=== PATIENT | male | born 1960 | race Caucasian/White ===

== ENCOUNTER 2020-11-17 08:20 | Emergency (ER) | payer BC, SELFPAY ==
--- NOTE | ~2020-11-17 | XR_ITS ---
EXAMINATION: XR CHEST CLINICAL INFORMATION: Chest pain COMPARISON: None TECHNIQUE: 2 views of the chest were obtained. FINDINGS: No significant abnormality is noted involving the heart, lungs, mediastinum, bony thorax or soft tissues. XR/XR chest 2V IMPRESSION: Unremarkable examination.
--- NOTE | 2020-11-17 08:25 | ECG_ITS ---
Test Reason : CP Blood Pressure : / mmHG Vent. Rate : 071 BPM Atrial Rate : 071 BPM P-R Int : 144 ms QRS Dur : 096 ms QT Int : 388 ms P-R-T Axes : 076 008 038 degrees QTc Int : 421 ms Normal sinus rhythm Possible Left atrial enlargement Incomplete right bundle branch block Borderline ECG No previous ECGs available Referred By: Zita Hoffman Electronically Signed By:LIU FORD
[2020-11-17 08:32] VITALS: BP 142/91; PULSE 82; RESP 16; TEMP 37.1; O2SAT 98; BMI 25.0
--- NOTE | 2020-11-17 08:53 | ED.CHESTPAIN ---
HPI - Chest Pain General Chief Complaint: Chest Pain Stated Complaint: chest pain Time Seen by Provider: 11/17/20 08:22 Source: patient Mode of arrival: ambulatory Limitations: no limitations History of Present Illness HPI narrative: 60 yo male with past medical history of RBBB and HLD here with complaints of epigastric/substernal chest pain x 1 hr which occurred at rest and is not associated with nausea, vomiting, diarrhea, SOB, dizziness, diaphoresis. He tells me he has had several similar episodes in the past which he contributed to indigestion. Took tums this morning with continued symptoms. He tells me this morning he had some cheerrios with milk approximately 30 minutes prior to episodes. MD complaint: chest pain Related Data Allergies Allergy/AdvReac Type Severity Reaction Status Date / Time No Known Allergies Allergy Unverified 06/05/20 16:27 [No Known Allergies*] Review of Systems Review of Systems: Yes all other systems are reviewed and are negative Constitutional: Constitutional: Reports no additional constitutional complaints, Denies body ache(s), Denies chills, Denies fever(s), Denies headache(s) and Denies weakness Eyes: Eyes: Reports no additional eye complaints and Denies change in vision ENT: Reports system reviewed and no additional complaints, except as documented, Denies dizziness, Denies headache(s), Denies nasal congestion, Denies nasal discharge and Denies neck pain Cardiovascular: Cardiovascular: Reports no additional cardiovascular complaints, Reports chest pain, Denies leg edema and Denies dyspnea Respiratory: Respiratory: Reports no additional respiratory complaints, Denies cough and Denies dyspnea Gastrointestinal: Gastrointestinal: Reports no additional gastrointestinal complaints, Denies abdominal pain, Denies diarrhea, Denies nausea and Denies vomiting Genitourinary: Genitourinary: Denies urinary incontinence Musculoskeletal: Musculoskeletal: Reports no additional musculoskeletal complaints, Denies back pain, Denies arthralgias, Denies joint swelling, Denies neck pain, Denies numbness and Denies tingling Integumentary/Breasts: Skin/Breast: Reports system reviewed and no additional complaints, except as docu and Denies rash Neurologic: Reports system reviewed and no additional complaints, except as documented, Denies Abnormal speech present, Denies dizziness, Denies headache(s), Denies numbness, Denies tingling and Denies weakness [facility] Past Medical History Attestation statement: The following information was validated with the patient. Source: old records reviewed and nursing notes reviewed Medical History Hyperlipidemia Social History Social History Alcohol intake: current Alcohol intake frequency: a few times a week Smoking Status: Never smoker Use of substances other than those prescribed or required for medical reasons: No Advance Directives: Yes Advance Directives Information Provided: Yes Advance Directives on File: No Physical Exam Vital Signs: Vital Signs: Last Vital Signs Temp 98.8 F 11/17/20 08:32 Pulse 82 11/17/20 08:32 Resp 16 11/17/20 08:32 BP 142/91 H 11/17/20 08:32 Pulse Ox 98 11/17/20 08:32 Body Mass Index 25.0 Const: General: cooperative, healthy appearing, comfortable and no acute distress Orientation/consciousness: patient oriented x3 Limitations: no limitations HENMT: Head: Yes normal to inspection Ears: hearing grossly normal bilaterally General nose exam: Normal external nose present Face and sinus: Yes normal facial exam Mouth: Normal oral and palatal mucosa present Throat: Yes posterior oropharynx normal Eyes: General: appearance normal, both eyes and all related structures Pupils: Equal, round and reactive pupils present Neck: Neck: Yes normal visual inspection Chest: Chest palpation & inspection: normal inspection of the chest and tenderness (tenderness over lower sternum-mild) Resp: Effort & Inspection: normal respiratory effort Auscultation: clear to auscultation bilaterally Cardio: Rate: regular rate Rhythm: regular rhythm Peripheral pulses: Peripheral pulses 2+ throughout GI: Inspection: Yes normal to inspection Palpation (GI): Soft to palpation and nontender Auscultation: normal bowel sounds Back/Spine/Pelvis: Thoracic/Lumbar Spine: thoracic and lumbar spine normal to inspection Skin: General skin exam: no rashes or lesions noted Neuro: General: patient oriented x3, no focal motor deficits and normal sensation to monofilament Cranial nerves: Yes Equal, round and reactive pupils present Cognition (Neuro): normal cognition Speech: No Abnormal speech present Gait exam (Neuro): Normal gait present Motor exam (neuro): 5/5 motor strength present throughout Extrem: General: Yes normal to inspection Course Course Course Narrative: 60 yo male here with epigastric pain/substernal chest pain x 1 hr with no associated symptoms. Will need labs, CXR, EKG, GI cocktail. 0930-Pain resolved after GI cocktail. 1020-Initial troponin negative, plan for repeat 3 hr. 1245-troponin 2. Negative. Less likely ACS with troponin x2 negative, EKG which shows no ischemic changes and atypical chest pain. Less likely PE with perc score 0, no tachycardia or hypoxia or clinical signs or symptoms concerning for DVT. Less likely pneumonia with negative chest x-ray. Consider GERD. Discussed with patient we will trial 2 week course of a PPI. Could also consider esophageal spasm so recommended him following up with his primary care doctor to discuss this. Reviewed worrisome signs and symptoms of when to return to the emergency department. Comfortable discharge home. MDM - Chest Pain MDM Narrative Medical decision making narrative: ACS, PE, PNA, GERD vs gastritis Medical Records Data Attestation: I reviewed the patient's medical records. Lab Data Attestation: I reviewed the patient's lab results. Result diagrams: 11/17/20 08:52 11/17/20 08:52 Labs: Lab Results 11/17/20 11/17/20 11/17/20 Range/Units 08:52 08:52 08:52 WBC 5.3 (4.8-10.8) X10*3/uL RBC 4.47 L (4.60-5.80) X10*6/uL Hgb 14.4 (14.0-18.0) g/dl Hct 42.7 (42-52) % MCV 95.5 (80-98) fL MCH 32.2 (27.0-33.0) pg MCHC 33.7 (31.0-36.0) g/dl RDW 12.8 (11.0-16.0) % Plt Count 266 (160-400) X10*3/uL MPV 9.0 L (9.4-12.4) fL Immature Gran % (Auto) 0.4 (0.0-0.4) % Neut % (Auto) 65.6 (45-73) % Lymph % (Auto) 23.2 (20-40) % [place] % (Auto) 7.4 (2-11) % Eos % (Auto) 2.8 (0-4) % Baso % (Auto) 0.6 (0-2) % Lymph # (Auto) 1.2 (1.2-4.9) X10*3/uL [place] # (Auto) 0.4 (0.1-1.2) X10*3/uL Eos # (Auto) 0.2 (0.0-0.4) X10*3/uL Baso # (Auto) 0.0 (0.0-0.2) X10*3/uL Abs Immat Gran (auto) 0.02 (0.00-0.03) X10*3/uL Absolute Neuts (auto) 3.5 (2.0-8.3) X10*3/uL Absolute Nucleated RBC 0.000 (0.0-0.012) X10*3/uL Nucleated RBC % (auto) 0.0 (0.0-0.2) /100WBC PT 11.9 (10.8-13.0) SEC INR 1.0 (0.9-1.1) Sodium 142 (135-145) mmol/L Potassium 4.4 (3.3-5.1) mmol/L Chloride 107 (96-108) mmol/L Carbon Dioxide 25 (22-29) mmol/L Anion Gap 14 (12-20) BUN 17 H (9-16) mg/dL Creatinine 0.82 (0.5-1.4) mg/dL Estim Creat Clear Calc 88.4 Estimated GFR > 60 Random Glucose 93 (60-115) mg/dL Calcium 9.2 (8.4-10.2) mg/dL Total Bilirubin 2.0 H (0.0-1.0) mg/dL Direct Bilirubin 0.6 H (0.0-0.5) mg/dL AST 23 (5-37) U/L ALT 21 (0-40) U/L Alkaline Phosphatase 77 (39-117) U/L Troponin I High Sens (<3.5-35.0) ng/L Total Protein 7.2 (6.5-8.0) g/dL Albumin 4.4 (3.5-5.0) g/dL 11/17/20 11/17/20 Range/Units 08:52 11:40 WBC (4.8-10.8) X10*3/uL RBC (4.60-5.80) X10*6/uL Hgb (14.0-18.0) g/dl Hct (42-52) % MCV (80-98) fL MCH (27.0-33.0) pg MCHC (31.0-36.0) g/dl RDW (11.0-16.0) % Plt Count (160-400) X10*3/uL MPV (9.4-12.4) fL Immature Gran % (Auto) (0.0-0.4) % Neut % (Auto) (45-73) % Lymph % (Auto) (20-40) % [place] % (Auto) (2-11) % Eos % (Auto) (0-4) % Baso % (Auto) (0-2) % Lymph # (Auto) (1.2-4.9) X10*3/uL [place] # (Auto) (0.1-1.2) X10*3/uL Eos # (Auto) (0.0-0.4) X10*3/uL Baso # (Auto) (0.0-0.2) X10*3/uL Abs Immat Gran (auto) (0.00-0.03) X10*3/uL Absolute Neuts (auto) (2.0-8.3) X10*3/uL Absolute Nucleated RBC (0.0-0.012) X10*3/uL Nucleated RBC % (auto) (0.0-0.2) /100WBC PT (10.8-13.0) SEC INR (0.9-1.1) Sodium (135-145) mmol/L Potassium (3.3-5.1) mmol/L Chloride (96-108) mmol/L Carbon Dioxide (22-29) mmol/L Anion Gap (12-20) BUN (9-16) mg/dL Creatinine (0.5-1.4) mg/dL Estim Creat Clear Calc Estimated GFR Random Glucose (60-115) mg/dL Calcium (8.4-10.2) mg/dL Total Bilirubin (0.0-1.0) mg/dL Direct Bilirubin (0.0-0.5) mg/dL AST (5-37) U/L ALT (0-40) U/L Alkaline Phosphatase (39-117) U/L Troponin I High Sens < 3.5 < 3.5 (<3.5-35.0) ng/L Total Protein (6.5-8.0) g/dL Albumin (3.5-5.0) g/dL Imaging Data Chest x-ray: Attestation: I personally reviewed and interpreted this imaging study as follows: Radiologist's impression: EXAMINATION: XR CHEST CLINICAL INFORMATION: Chest pain COMPARISON: None TECHNIQUE: 2 views of the chest were obtained. FINDINGS: No significant abnormality is noted involving the heart, lungs, mediastinum, bony thorax or soft tissues. XR/XR chest 2V IMPRESSION: Unremarkable examination. ECG Data ECG #1: Attestation: I personally reviewed and interpreted this ECG as follows: Interpretation: NSR, rate 71, normal pr, normal qrs, normal qt, incomplete RBBB Discharge Plan Discharge Clinical Impression: Atypical chest pain Patient Disposition: Home, Self-Care Instructions: Chest Pain (ED) Additional Instructions: Your EKG and cardiac enzymes and chest x-ray were all unremarkable today. We did check her cardiac enzymes twice and your level did not change which is reassuring that this was not a cardiac event. We do recommend that you follow-up with your primary care doctor as you may need additional testing done outpatient. In the meantime I would follow a GERD diet and start taking prilosec 20mg once daily for 14 days. You can buy this over the counter Referrals: Zeeshan Mccauley MD [Primary Care Provider] - 2 days
[2020-11-17] MEDS: Magnesium Hydrox/Alum Hydrox 30 ML ORAL.SUSP PO (08:55)
[2020-11-17] MEDS: Lidocaine HCl Viscous 2 % 15 ML SOLUTION MUCOUS MEM (08:55)
[2020-11-17 09:31] LABS: Basophils Percent Auto 0.6 % (0-2); Eosinophils Absolute Auto 0.2 X10*3/uL (0.0-0.4); Eosinophils Percent Auto 2.8 % (0-4); Hematocrit 42.7 % (42-52); Hemoglobin 14.4 g/dl (14.0-18.0); Imm Gran Abs Auto 0.02 X10*3/uL (0.00-0.03); Imm Gran Pct Auto 0.4 % (0.0-0.4); Lymphocytes Absolute Auto 1.2 X10*3/uL (1.2-4.9); Lymphocytes Percent Auto 23.2 % (20-40); MANUAL DIFF FLAG NO; Mean Corpuscular HGB Conc 33.7 g/dl (31.0-36.0); Mean Corpuscular Hemoglobin 32.2 pg (27.0-33.0); Mean Corpuscular Volume 95.5 fL (80-98); Monocytes Absolute Auto 0.4 X10*3/uL (0.1-1.2); Monocytes Percent Auto 7.4 % (2-11); Neutrophils Absolute Auto 3.5 X10*3/uL (2.0-8.3); Neutrophils Percent Auto 65.6 % (45-73); Platelet Count 266 X10*3/uL (160-400); Red Blood Count 4.47 X10*6/uL (4.60-5.80); Red Cell Distribution Width 12.8 % (11.0-16.0); White Blood Count 5.3 X10*3/uL (4.8-10.8)
--- NOTE | 2020-11-17 09:32 | PC.NURSE ---
Pt pain free. OOB to bathroom
[2020-11-17 09:33] LABS: Prothrombin Time 11.9 SEC (10.8-13.0)
[2020-11-17 10:04] LABS: Troponin-I High Sensitivity < 3.5 ng/L (<3.5-35.0)
[2020-11-17 10:12] LABS: Alanine Aminotransferase 21 U/L (0-40); Albumin Level 4.4 g/dL (3.5-5.0); Alkaline Phosphatase 77 U/L (39-117); Anion Gap 14 (12-20); Aspartate Amino Transferase 23 U/L (5-37); Bilirubin Direct 0.6 mg/dL (0.0-0.5); Blood Urea Nitrogen 17 mg/dL (9-16); Calcium 9.2 mg/dL (8.4-10.2); Carbon Dioxide 25 mmol/L (22-29); Chloride 107 mmol/L (96-108); Creatinine Clr Calc Pharmacy 88.4; Estimated Glomerular Filt Rate > 60; Glucose Random 93 mg/dL (60-115); Potassium 4.4 mmol/L (3.3-5.1); Sodium 142 mmol/L (135-145); Total Protein 7.2 g/dL (6.5-8.0)
[2020-11-17 12:22] LABS: Troponin-I High Sensitivity < 3.5 ng/L (<3.5-35.0)
== END 2020-11-17 13:00 | disposition home or self-care (01) ==
PROVIDERS: Nurse Practitioner Family; Emergency Provider Emergency Medicine; PCP Internal Medicine
DX: R07.89 Other chest pain (principal); E78.5 Hyperlipidemia, unspecified
CPT/HCPCS: 36415; 71046; 80048; 80076; 84484; 85025; 85610; 93005; 99283; 99284

== ENCOUNTER → 2020-11-21 08:23 | Outpatient (REF) | payer BC, SELFPAY ==
--- NOTE | 2020-11-21 08:30 | CA_ITS ---
Acquisition Time: 2020-11-21 08:36:16 Total Exercise Time: 00:09:00 Test Indications: NA Medications: SEE CHART Protocol: JAVED Max HR: 150 BPM 94% of Pred: 159 BPM Max BP: 154/082 mmHG Max Work Load: 10.1 METS PT EXERCISED ON STD JAVED PROTOCOL FOR 9 MIN THRU STAGE 3. MAX HR 148-93% . NO CP OR SOB. ONE ISOLATED PVC AND ONE PAC. NO SXS. CLINICALLY AND ELEC NEG TEST. B/P @ 6 MIN 140/80 B/P @ 9 MIN 154/82 Referred By: Zeeshan Floyd Overread By: RANDALL FLOYD MD
== END ==
LOC: HO.CARD 08:23
PROVIDERS: Visit Provider Internal Medicine
DX: R07.89 Other chest pain (principal)
CPT/HCPCS: 93017

== ENCOUNTER 2021-01-30 10:04 | Outpatient (REF) | payer BC, SELFPAY ==
[2021-01-30 13:58] LABS: MANUAL DIFF FLAG NO
[2021-01-30 14:03] LABS: Basophils Percent Auto 0.6 % (0-2); Eosinophils Absolute Auto 0.1 X10*3/uL (0.0-0.4); Eosinophils Percent Auto 2.1 % (0-4); Hematocrit 43.4 % (42-52); Hemoglobin 14.3 g/dl (14.0-18.0); Imm Gran Abs Auto 0.01 X10*3/uL (0.00-0.03); Imm Gran Pct Auto 0.2 % (0.0-0.4); Lymphocytes Absolute Auto 1.3 X10*3/uL (1.2-4.9); Lymphocytes Percent Auto 28.6 % (20-40); Mean Corpuscular HGB Conc 32.9 g/dl (31.0-36.0); Mean Corpuscular Hemoglobin 32.1 pg (27.0-33.0); Mean Corpuscular Volume 97.5 fL (80-98); Mean Platelet Volume 9.2 fL (9.4-12.4); Monocytes Absolute Auto 0.4 X10*3/uL (0.1-1.2); Monocytes Percent Auto 8.1 % (2-11); Neutrophils Absolute Auto 2.8 X10*3/uL (2.0-8.3); Neutrophils Percent Auto 60.4 % (45-73); Platelet Count 268 X10*3/uL (160-400); Red Blood Count 4.45 X10*6/uL (4.60-5.80); Red Cell Distribution Width 12.5 % (11.0-16.0); White Blood Count 4.7 X10*3/uL (4.8-10.8)
[2021-01-30 14:29] LABS: Alanine Aminotransferase 20 U/L (0-40); Albumin Level 4.4 g/dL (3.5-5.0); Alkaline Phosphatase 83 U/L (39-117); Anion Gap 14 (12-20); Aspartate Amino Transferase 20 U/L (5-37); Bilirubin Total 2.1 mg/dL (0.0-1.0); Blood Urea Nitrogen 14 mg/dL (9-16); Calcium 9.3 mg/dL (8.4-10.2); Carbon Dioxide 25 mmol/L (22-29); Chloride 106 mmol/L (96-108); Cholesterol 187 mg/dL; Estimated Glomerular Filt Rate > 60; Glucose Fasting 83 mg/dL (60-99); HDL Cholesterol 57 mg/dL; LDL Cholesterol Calculated 110 mg/dl; Potassium 4.2 mmol/L (3.3-5.1); Sodium 141 mmol/L (135-145); Total Protein 7.1 g/dL (6.5-8.0); Triglycerides 103 mg/dL
[2021-01-30 14:52] LABS: Prostate Specific Antigen Scr 1.25 ng/mL (<0.05-4.0)
== END 2021-01-30 10:05 | disposition home or self-care (01) ==
LOC: HO.10HDL 10:04
PROVIDERS: Visit Provider Internal Medicine
DX: Z00.00 Encounter for general adult medical examination without abnormal findings (principal); Z12.5 Encounter for screening for malignant neoplasm of prostate
CPT/HCPCS: 36415; 80053; 80061; 84153; 85025

== ENCOUNTER 2022-01-29 09:42 | Outpatient (REF) | payer BC, SELFPAY ==
[2022-01-29 10:02] LABS: MANUAL DIFF FLAG NO
[2022-01-29 10:15] LABS: Basophils Percent Auto 0.4 % (0-2); Eosinophils Absolute Auto 0.1 X10*3/uL (0.0-0.4); Eosinophils Percent Auto 1.5 % (0-4); Hematocrit 42.5 % (42.0-52.0); Lymphocytes Absolute Auto 1.5 X10*3/uL (1.2-4.9); Lymphocytes Percent Auto 28.2 % (20-40); Mean Corpuscular HGB Conc 32.9 g/dl (31.0-36.0); Mean Corpuscular Hemoglobin 31.3 pg (27.0-33.0); Mean Corpuscular Volume 94.9 fL (80.0-98.0); Mean Platelet Volume 8.6 fL (9.4-12.4); Monocytes Absolute Auto 0.4 X10*3/uL (0.1-1.2); Monocytes Percent Auto 7.6 % (2-11); Neutrophils Absolute Auto 3.3 x10*3/uL (2.0-8.3); Neutrophils Percent Auto 62.3 % (45-73); Platelet Count 241 X10*3/uL (160-400); Red Blood Count 4.48 X10*6/uL (4.60-5.80); Red Cell Distribution Width 12.7 % (11.0-16.0); White Blood Count 5.3 X10*3/uL (4.8-10.8)
[2022-01-29 10:46] LABS: Alanine Aminotransferase 21 U/L (0-40); Albumin Level 4.5 g/dL (3.5-5.0); Alkaline Phosphatase 80 U/L (39-117); Anion Gap 13 (12-20); Aspartate Amino Transferase 20 U/L (5-37); Bilirubin Total 1.6 mg/dL (0.0-1.0); Blood Urea Nitrogen 16 mg/dL (9-16); Calcium 9.7 mg/dL (8.4-10.2); Carbon Dioxide 24 mmol/L (22-29); Chloride 106 mmol/L (96-108); Cholesterol 189 mg/dL; Estimated Glomerular Filt Rate > 60; Glucose Fasting 97 mg/dL (60-99); HDL Cholesterol 61 mg/dL; LDL Cholesterol Calculated 106 mg/dl; Potassium 4.2 mmol/L (3.3-5.1); Sodium 139 mmol/L (135-145); Total Protein 7.2 g/dL (6.5-8.0); Triglycerides 114 mg/dL
[2022-01-29 11:08] LABS: Prostate Specific Antigen 1.71 ng/mL (<0.05-4.0)
== END 2022-01-29 09:43 | disposition home or self-care (01) ==
LOC: HO.LAB 09:42
PROVIDERS: PCP Internal Medicine; Visit Provider Internal Medicine
DX: Z00.00 Encounter for general adult medical examination without abnormal findings (principal); Z13.220 Encounter for screening for lipoid disorders; Z12.5 Encounter for screening for malignant neoplasm of prostate
CPT/HCPCS: 36415; 80053; 80061; 84153; 85025

== ENCOUNTER 2023-02-04 11:03 | Outpatient (REF) | payer BC, SELFPAY ==
[2023-02-04 13:24] LABS: MANUAL DIFF FLAG NO
[2023-02-04 13:33] LABS: Basophils Percent Auto 0.7 % (0-2); Eosinophils Absolute Auto 0.1 X10*3/uL (0.0-0.4); Hematocrit 42.7 % (42.0-52.0); Hemoglobin 14.3 g/dl (14.0-18.0); Imm Gran Abs Auto 0.02 X10*3/uL (0.00-0.03); Imm Gran Pct Auto 0.4 % (0.0-0.4); Lymphocytes Absolute Auto 1.6 X10*3/uL (1.2-4.9); Lymphocytes Percent Auto 29.5 % (20-40); Mean Corpuscular HGB Conc 33.5 g/dl (31.0-36.0); Mean Corpuscular Hemoglobin 31.8 pg (27.0-33.0); Mean Corpuscular Volume 94.9 fL (80.0-98.0); Mean Platelet Volume 9.1 fL (9.4-12.4); Monocytes Absolute Auto 0.4 X10*3/uL (0.1-1.2); Monocytes Percent Auto 7.7 % (2-11); Neutrophils Absolute Auto 3.2 x10*3/uL (2.0-8.3); Neutrophils Percent Auto 59.7 % (45-73); Platelet Count 280 X10*3/uL (160-400); Red Cell Distribution Width 13.2 % (11.0-16.0); White Blood Count 5.4 X10*3/uL (4.8-10.8)
[2023-02-04 13:56] LABS: Alanine Aminotransferase 26 U/L (0-40); Albumin Level 4.4 g/dL (3.5-5.0); Alkaline Phosphatase 82 U/L (39-117); Anion Gap 14 (12-20); Aspartate Amino Transferase 25 U/L (5-37); Bilirubin Total 2.2 mg/dL (0.0-1.0); Blood Urea Nitrogen 16 mg/dL (9-16); Calcium 9.4 mg/dL (8.4-10.2); Carbon Dioxide 25 mmol/L (22-29); Chloride 107 mmol/L (96-108); Cholesterol 202 mg/dL; Estimated Glomerular Filt Rate > 60; Glucose Fasting 84 mg/dL (60-99); HDL Cholesterol 53 mg/dL; LDL Cholesterol Calculated 124 mg/dl; Potassium 4.3 mmol/L (3.3-5.1); Sodium 142 mmol/L (135-145); Total Protein 7.2 g/dL (6.5-8.0); Triglycerides 125 mg/dL
[2023-02-04 14:13] LABS: Prostate Specific Antigen 2.16 ng/mL (<0.05-4.0)
== END 2023-02-04 11:04 | disposition home or self-care (01) ==
LOC: HO.10HDL 11:03
PROVIDERS: Visit Provider Internal Medicine
DX: E55.9 Vitamin D deficiency, unspecified (principal); N40.0 Benign prostatic hyperplasia without lower urinary tract symptoms; E78.00 Pure hypercholesterolemia, unspecified; Z12.5 Encounter for screening for malignant neoplasm of prostate
CPT/HCPCS: 36415; 80053; 80061; 82306; 84153; 85025

== ENCOUNTER 2023-10-31 15:43 | Outpatient (REF) | payer BC, SELFPAY ==
--- NOTE | ~2023-10-31 | XR_ITS ---
EXAMINATION: XR CHEST CLINICAL INFORMATION: Cough COMPARISON: 11/17/2020 TECHNIQUE: 2 views of the chest were obtained. FINDINGS: Lungs are well-inflated and clear. Trachea is midline in position. No interstitial disease, consolidation or mass. No pleural effusion or pneumothorax. Cardiac silhouette and pulmonary vessels are normal in size. The mediastinum and aidan have normal contour. The visualized bones and upper abdomen are unremarkable. XR/XR chest 2V IMPRESSION: Lungs have a normal appearance. No acute cardiopulmonary abnormality.
[2023-10-31 16:54] LABS: Influenza A PCR NEGATIVE (Negative); Influenza B PCR NEGATIVE (Negative); Resp Syncy Virus RNA Qual PCR NEGATIVE (Negative); SARS COV2 PCR INHOUSE NEGATIVE (Negative)
== END 2023-10-31 15:44 | disposition home or self-care (01) ==
LOC: HO.XRAY 15:43
PROVIDERS: PCP Internal Medicine; Visit Provider Internal Medicine
DX: Z11.52 Encounter for screening for COVID-19 (principal); Z20.822 Contact with and (suspected) exposure to COVID-19; R05.9 Cough, unspecified
CPT/HCPCS: 0241U; 71046

== ENCOUNTER 2024-02-10 09:31 | Outpatient (REF) | payer BC, SELFPAY ==
[2024-02-10 10:22] LABS: MANUAL DIFF FLAG NO
[2024-02-10 10:33] LABS: Basophils Percent Auto 0.6 % (0-2); Eosinophils Absolute Auto 0.1 X10*3/uL (0.0-0.4); Eosinophils Percent Auto 1.5 % (0-4); Hematocrit 43.7 % (42.0-52.0); Hemoglobin 14.8 g/dl (14.0-18.0); Imm Gran Abs Auto 0.01 X10*3/uL (0.00-0.03); Imm Gran Pct Auto 0.2 % (0.0-0.4); Lymphocytes Absolute Auto 1.3 X10*3/uL (1.2-4.9); Lymphocytes Percent Auto 28.7 % (20-40); Mean Corpuscular HGB Conc 33.9 g/dl (31.0-36.0); Mean Corpuscular Hemoglobin 32.6 pg (27.0-33.0); Mean Corpuscular Volume 96.3 fL (80.0-98.0); Mean Platelet Volume 8.7 fL (9.4-12.4); Monocytes Absolute Auto 0.4 X10*3/uL (0.1-1.2); Monocytes Percent Auto 7.5 % (2-11); Neutrophils Absolute Auto 2.9 x10*3/uL (2.0-8.3); Neutrophils Percent Auto 61.5 % (45-73); Platelet Count 286 X10*3/uL (160-400); Red Blood Count 4.54 X10*6/uL (4.60-5.80); Red Cell Distribution Width 12.5 % (11.0-16.0); White Blood Count 4.7 X10*3/uL (4.8-10.8)
[2024-02-10 10:48] LABS: Alanine Aminotransferase 20 U/L (0-40); Albumin Level 4.4 g/dL (3.5-5.0); Alkaline Phosphatase 84 U/L (39-117); Anion Gap 13 (12-20); Aspartate Amino Transferase 21 U/L (5-37); Bilirubin Total 1.8 mg/dL (0.0-1.0); Blood Urea Nitrogen 14 mg/dL (9-16); Calcium 10.2 mg/dL (8.4-10.2); Carbon Dioxide 26 mmol/L (22-29); Chloride 106 mmol/L (96-108); Cholesterol 178 mg/dL (<200); Estimated Glomerular Filt Rate > 60; Glucose Fasting 89 mg/dL (60-99); HDL Cholesterol 55 mg/dL (>40); LDL Cholesterol Calculated 103 mg/dL (<100); Potassium 4.2 mmol/L (3.3-5.1); Sodium 141 mmol/L (135-145); Total Protein 7.4 g/dL (6.5-8.0); Triglycerides 102 mg/dL (<150)
[2024-02-10 11:18] LABS: Prostate Specific Antigen Scr 3.03 ng/mL (<0.05-4.0)
== END 2024-02-10 09:32 | disposition home or self-care (01) ==
LOC: HO.10HDL 09:31
PROVIDERS: Visit Provider Internal Medicine
DX: Z12.5 Encounter for screening for malignant neoplasm of prostate (principal); E78.00 Pure hypercholesterolemia, unspecified; N40.0 Benign prostatic hyperplasia without lower urinary tract symptoms; Z86.010 Personal history of colon polyps
CPT/HCPCS: 36415; 80053; 80061; 84153; 85025

== ENCOUNTER 2024-09-10 08:05 | Outpatient (AMB) | payer MEDICARE, SELFPAY ==
--- NOTE | 2024-09-10 08:20 | MHC.OFFVIS ---
Vital Signs 09/10/24 08:22 Height 5 ft 7 in Weight 160 lb BMI 25.1 Intake Visit Reasons: Right knee pain and giving way Intake Note: Mo is a 63 year old male who presents with complaints of progressively worsening right knee pain and giving way. The patient describes his pain as sharp in nature. His pain and mechanical symptoms have gotten worse over the last few months in spite of continued non operative treatments. The patient states that he normally walks or hikes for exercise. He has not been able to walk for exercise because of his pain. Most of the pain is along the medial and posterior aspects of his knee. He has tried Tylenol and ibuprofen which gave him minimal relief. He has failed the last 6 weeks of conservative treatment. He has tried physical therapy exercises which aggravated his pain. The patient states that his right knee pain is now interfering with his activities of daily living and his ability to sleep well through the night. Allergies No Known Allergies [No Known Allergies*] Allergy (Unverified 09/10/24 08:22) Medication List - Last Reconciled 09/10/24 by Jordan Blanco MD latanoprost 0.005% drps ophthalmic (eye) simvastatin 20 mg PO BEDTIME [facility] Medical History Hyperlipidemia Social History Alcohol intake: current Alcohol intake frequency: a few times a week Physical Exam Vital Signs: BMI result Body Mass Index 25.1 Const Other: Well-nourished well-developed very friendly male awake alert and oriented x3 in no acute distress Extrem Other: Bilateral lower extremity examination shows good capillary refill, no skin lesions noted, normal sensation light touch Right knee examination shows a minimal effusion, minimal crepitus with range of motion, tenderness along his medial joint line, positive Erica's test, no instability Results Reviewed Results Reviewed: Standing full weight-bearing x-rays of the patient's right knee show mild diffuse joint space narrowing, no acute bony abnormalities Assessment & Plan Assessment & Plan (1) Tear of medial meniscus of right knee: Code(s): S83.241A - Other tear of medial meniscus, current injury, right knee, initial encounter Category: Medical Plan Mr. Bush presents with progressively worsening right knee pain and mechanical symptoms most likely due to a tear of his medial meniscus. Thus, I will send the patient for an MRI of his right knee for further evaluation. I will see him back once the MRI is completed to discuss the findings and treatment options. Feel free to call me at any time should questions regarding his orthopedic management arise. I spent 20 minutes in reviewing the patient's records and imaging studies, seeing the patient and documenting in the medical record. Orders: Orders MR knee RT wo con Today S83.241A - Other tear of medial meniscus, current injury, right knee, initial encounter Coding Level of Care Code Est Pt Level 2 (53546) Complex EM visit Add On G2211 Diagnoses Tear of medial meniscus of right knee S83.241A
[2024-09-10 08:22] VITALS: BMI 25.1
== END 2024-09-10 08:37 | disposition home or self-care (01) ==
PROVIDERS: PCP Internal Medicine; Visit Provider Orthopaedic Surgery
DX: S83.241A Other tear of medial meniscus, current injury, right knee, initial encounter (principal)
CPT/HCPCS: 99213; G2211

== ENCOUNTER 2024-09-10 15:29 | Outpatient (REF) | payer MEDICARE, SELFPAY | END 2024-09-10 15:30 | disposition home or self-care (01) | LOC: HO.HOSX 15:29 | PROVIDERS: Visit Provider Orthopaedic Surgery | DX: S83.241A Other tear of medial meniscus, current injury, right knee, initial encounter (principal) | CPT/HCPCS: 73562; 99212 ==

== ENCOUNTER → 2024-09-14 18:02 | Outpatient (BNV) | payer MEDICARE, SELFPAY | PROVIDERS: PCP Internal Medicine; Visit Provider Radiology Diagnostic Radiology | DX: S83.241A Other tear of medial meniscus, current injury, right knee, initial encounter (principal) | CPT/HCPCS: 73721 ==

== ENCOUNTER 2024-09-14 18:04 | Outpatient (REF) | payer MEDICARE, SELFPAY | END 2024-09-14 18:05 | disposition home or self-care (01) | LOC: HO.MRI 18:04 | PROVIDERS: PCP Internal Medicine; Visit Provider Orthopaedic Surgery | DX: S83.241A Other tear of medial meniscus, current injury, right knee, initial encounter (principal) | CPT/HCPCS: 73721 ==

== ENCOUNTER 2024-10-03 07:28 | Outpatient (AMB) | payer MEDICARE, SELFPAY ==
--- NOTE | 2024-10-03 07:43 | MHC.OFFVIS ---
Vital Signs 10/03/24 07:46 Height 5 ft 7 in Weight 160 lb BMI 25.1 Intake Visit Reasons: OV-Right Knee MRI reveiw Intake Note: Mo is a 63 year old male who presents with complaints of progressively worsening right knee pain and giving way. The patient describes his pain as sharp in nature. His pain and mechanical symptoms have gotten worse over the last few months in spite of continued non operative treatments. The patient states that he normally walks or hikes for exercise. He has not been able to walk for exercise because of his pain. Most of the pain is along the medial and posterior aspects of his knee. He has tried Tylenol and ibuprofen which gave him minimal relief. He has failed the last 6 weeks of conservative treatment. He has tried physical therapy exercises which aggravated his pain. The patient states that his right knee pain is now interfering with his activities of daily living and his ability to sleep well through the night. Allergies No Known Allergies [No Known Allergies*] Allergy (Unverified 10/03/24 07:46) Medication List - Last Reconciled 10/03/24 by Jordan Blanco MD latanoprost 0.005% drps ophthalmic (eye) simvastatin 20 mg PO BEDTIME [facility] Medical History Hyperlipidemia Social History Alcohol intake: current Alcohol intake frequency: a few times a week Physical Exam Vital Signs: BMI result Body Mass Index 25.1 Const Other: Well-nourished well-developed very friendly male awake alert and oriented x3 in no acute distress Extrem Other: Bilateral lower extremity examination shows good capillary refill, no skin lesions noted, normal sensation light touch Right knee examination shows a minimal effusion, minimal crepitus with range of motion, tenderness along his medial joint line, positive Erica's test, no instability Results Reviewed Results Reviewed: Standing full weight-bearing x-rays of the patient's right knee show mild diffuse joint space narrowing, no acute bony abnormalities MRI of the patient's right knee shows mild diffuse degenerative changes as well as a tear of the medial meniscus Assessment & Plan Assessment & Plan (1) Tear of medial meniscus of right knee: Code(s): S83.241A - Other tear of medial meniscus, current injury, right knee, initial encounter Category: Medical Plan Mr. Bush presents with progressively worsening right knee pain and mechanical symptoms due to a medial meniscus tear. I had a lengthy discussion with the patient regarding the treatment options. At this point he has failed continued non operative treatments. The risks and benefits of right knee arthroscopic surgery were discussed at length patient. The patient wishes to proceed with surgery. Surgery will most likely involve right knee diagnostic arthroscopy with arthroscopic partial medial meniscectomy. The patient does understand that he may not get 100% relief of his symptoms depending on the severity of his degenerative changes. He will be scheduled for next available date. He will follow-up as instructed. Feel free to call me at any time should questions regarding his orthopedic management arise. I spent 22 minutes in reviewing the patient's records and imaging studies, seeing the patient and documenting in the medical record. Coding Level of Care Code Est Pt Level 3 (84262) Complex EM visit Add On G2211 Diagnoses Tear of medial meniscus of right knee S83.241A
[2024-10-03 07:46] VITALS: BMI 25.1
== END 2024-10-03 08:05 | disposition home or self-care (01) ==
PROVIDERS: PCP Internal Medicine; Visit Provider Orthopaedic Surgery
DX: S83.241A Other tear of medial meniscus, current injury, right knee, initial encounter (principal)
CPT/HCPCS: 99213; G2211

== ENCOUNTER → 2024-10-03 07:28 | Outpatient (BNVA) | payer MEDICARE, SELFPAY | PROVIDERS: PCP Internal Medicine; Visit Provider Orthopaedic Surgery | DX: S83.241A Other tear of medial meniscus, current injury, right knee, initial encounter (principal); X58.XXXA Exposure to other specified factors, initial encounter; Y93.9 Activity, unspecified; Y92.9 Unspecified place or not applicable; Y99.9 Unspecified external cause status | CPT/HCPCS: 99212 ==

== ENCOUNTER 2024-11-16 05:48 | Day surgery (SDC) | payer MEDICARE, SELFPAY ==
[2024-11-14 10:17] VITALS: BMI 25.1
[2024-11-16] VITALS (8 sets, daily range): BP systolic 107–127; BP diastolic 72–83; PULSE 69–82; RESP 16–18; TEMP 36.1–36.8; O2SAT 97–99; BMI 25.3
[2024-11-16] MEDS: Lactated Ringers 1,000 ML 100 ML IVCONT (06:18)
--- NOTE | 2024-11-16 07:13 | HO.ANESPROP2 ---
Documented by User: Judy Segura NP 11/14/24 14:53 HPI - Anesthesia Eval Consult details Narrative: 64yo M for Right Knee Arthroscopy,partial medial meniscectomy PMFSH Active Problems Active Problems: All Active Problems Tear of medial meniscus of right knee (Acute) Left knee pain (Acute) Past Medical History Medical History Hyperlipidemia Surgical History Surgical History Hx of bilateral cataract extraction H/O colonoscopy Social History Social History (Updated 11/14/24 @ 10:16 by Flaquita Hunter RN) Are you a primary janitor caretaker to a significant other at home: No Do you presently have visiting nurse or other home services: No Alcohol intake: current Alcohol intake frequency: a few times a week Patient Tobacco Use Status: Never used Tobacco Have you been hit, kicked, punched, or otherwise hurt by someone within the past year? If so, by whom?: No Are you DNR?: No Advance Directives: No Advance Directives Information Provided: Yes Recently lost weight without trying: No Nutrition Risks: No Nutritional Risk Meds Allergies Allergy/AdvReac Type Severity Reaction Status Date / Time No Known Allergies Allergy Verified 11/16/24 06:13 [No Known Allergies*] Active Medications: Current Medications Cefazolin Sodium/Dextrose (Ancef) 2 gm in 50 mls @ 100 mls/hr IV PREOP ONE Stop: 11/16/24 05:38 Home Medications ?Medication ?Instructions ?Recorded ?Confirmed ?Last Taken ?Type latanoprost 0.005 % eye drops 1 drp ophthalmic (eye) BEDTIME 09/10/24 11/14/24 Unknown History simvastatin 20 mg tablet 20 mg PO BEDTIME 09/10/24 11/14/24 Unknown History Exam Height,Weight and Vital Signs: Height 5 ft 7 in Weight 72.575 kg Assessment and Plan Assessment Anesthesia Assessment: Chart Reviewed Documented by User: Sade Lee DO 11/16/24 07:15 [facility] Past Medical History Medical History Hyperlipidemia Family History Family history of problems with anesthesia: No Surgical History Surgical History Hx of bilateral cataract extraction H/O colonoscopy History of Problems with Anesthesia: No Social History Social History (Updated 11/14/24 @ 10:16 by Flaquita Hunter RN) Are you a primary janitor caretaker to a significant other at home: No Do you presently have visiting nurse or other home services: No Alcohol intake: current Alcohol intake frequency: a few times a week Patient Tobacco Use Status: Never used Tobacco Have you been hit, kicked, punched, or otherwise hurt by someone within the past year? If so, by whom?: No Are you DNR?: No Advance Directives: No Advance Directives Information Provided: Yes Recently lost weight without trying: No Nutrition Risks: No Nutritional Risk Meds Allergies Allergy/AdvReac Type Severity Reaction Status Date / Time No Known Allergies Allergy Verified 11/16/24 06:13 [No Known Allergies*] Home Medications ?Medication ?Instructions ?Recorded ?Confirmed ?Last Taken ?Type latanoprost 0.005 % eye drops 1 drp ophthalmic (eye) BEDTIME 09/10/24 11/14/24 Unknown History simvastatin 20 mg tablet 20 mg PO BEDTIME 09/10/24 11/14/24 Unknown History Exam Exam Date and Time: 11/16/24 0710 Height,Weight and Vital Signs: Height 5 ft 7 in Weight 72.575 kg Vital Signs Temperature 98.2 F 11/16/24 06:30 Pulse Rate 82 11/16/24 06:30 Respiratory Rate 18 11/16/24 06:30 Blood Pressure 127/75 11/16/24 06:30 Pulse Oximetry 97 11/16/24 06:30 Oxygen Delivery Method Room Air 11/16/24 06:30 Temperature 98.2 F 11/16/24 06:30 Pulse Rate 82 11/16/24 06:30 Respiratory Rate 18 11/16/24 06:30 Blood Pressure 127/75 11/16/24 06:30 Pulse Oximetry 97 11/16/24 06:30 Oxygen Delivery Method Room Air 11/16/24 06:30 Airway Mallampati Class: II TM Dist: >3cm Neck ROM: Full Loose/Missing/Broken Teeth: No (patient denies any loose or broken teeth) Heart: S1S2 Lungs: CTAB Assessment and Plan Assessment Anesthesia Assessment: Anesthesia Plan Discussed and Chart Reviewed Final Anesthetic Review Family History of Problems with Anesthesia: No History of Problems with Anesthesia: No NPO: Yes ASA Class: I Final Preanesthetic Review: No Changes in Pt Med Stat, Meds/Allgs Chart Reviewed, Consent Obtained/Reviewed and Anes Risks/Benef Reviewed Patient Risk: Low Procedure Risk: Low Anesthetic Plan Anesthetic Plan: GA and Agree w/ Assess. and Plan Disposition: Standard PACU
[2024-11-16] MEDS: ceFAZolin Sodium/Dextrose,Iso 2 GM/50 ML PIGGYBACK IV (07:33)
[2024-11-16] MEDS: Acetaminophen 1,000 MG/100 ML PIGGYBACK 400 MG IV (07:40)
--- NOTE | 2024-11-16 08:30 | PM.OP ---
Brief Operative Note Date of Service: 11/16/24 Pre-op diagnosis: Right knee medial meniscus tear, right knee degenerative joint disease Post-op diagnosis: same Procedure: Right knee diagnostic arthroscopy with right knee arthroscopic partial medial meniscectomy, right knee arthroscopic chondroplasty of the undersurface of the patella Implants: none Surgeon: Jordan Blanco MD Anesthesia: GLMA Was an Counseling Aide used for this Procedure?: No Estimated blood loss (mL): 10 Pathology: none sent Condition: stable Disposition: PACU
--- NOTE | 2024-11-16 08:31 | W.PM.OPN ---
Operative Note Operative Note Date of Service: 11/16/24 Narrative: After the patient was identified as Mo Bush and his right knee was initialed by myself they were brought to the operating room where general anesthesia was induced by the anesthesiologist in routine fashion. The patient was given 2 g of IV Ancef for infection prophylaxis. A formal time-out was completed. The patient's right lower extremity was prepped and draped in sterile fashion. Marcaine with epinephrine was injected into the planned incision sites as well as their right knee joint. A # 11 scalpel blade was used to make an anterolateral portal 1 cm proximal to the joint line and 1 cm lateral to the patellar tendon. Blunt trocar technique was used into the suprapatellar pouch with the knee in extension. Diagnostic arthroscopy showed multiple bands of thickened plica which would be excised at the end of the procedure. There were no loose bodies or abnormalities found in either the medial or lateral gutters. There were diffuse grades 1 and 2 degenerative changes of the undersurface of the patella as well as grade 1 degenerative changes of the trochlear groove. The patient's knee was flexed to 45 degrees and a valgus force was placed upon it. The medial compartment was entered. An anteromedial portal was made 1 cm proximal to the joint line and 1 cm medial to the patellar tendon. Probing of the medial meniscus showed a radial tear of the posterior horn. A partial medial meniscectomy was performed using the arthroscopic shaver. Following the partial meniscectomy the remainder of the meniscus tissue was stable. There were diffuse grade 1 degenerative changes of the medial femoral condyle as well as diffuse grade 1 degenerative changes of the medial tibial plateau. The patient's knee was then placed into a neutral position. There was no injury to the anterior cruciate ligament. The patient's knee was then placed into the figure of 4 position and the lateral compartment was entered. There were minimal degenerative changes of the lateral femoral condyle and lateral tibial plateau. There was no evidence of lateral meniscus tearing. The patient's knee was once again brought into extension and the suprapatellar pouch was entered. The arthroscopic shaver and the ArthroCare Wand were used to excise the thickened bands of plica. The undersurface of the patella was then made smooth using the arthroscopic shaver. The articular surface of the trochlear groove was already smooth so no chondroplasty was indicated. The knee joint was irrigated and then drained. All arthroscopic instruments were removed. The 2 portals were closed with 3-0 nylon interrupted suture. The knee joint was injected with Marcaine. Dry sterile dressing and Vahe bandages were placed over the patient's knee. The patient was awoken and extubated in the operating room. They were transferred to the recovery room in stable condition.
[2024-11-16] MEDS: cefTRIAXone sodium 1 GM VIAL IVPUSH (09:05)
[2024-11-16] MEDS: oxyCODONE HCl Immed Release 5 MG TABLET PO (09:25)
== END 2024-11-16 10:42 | disposition home or self-care (01) ==
PROVIDERS: PCP Internal Medicine; Visit Provider Orthopaedic Surgery
PROC: (CPT 29870; principal; 2024-11-16 07:30)
DX: S83.241A Other tear of medial meniscus, current injury, right knee, initial encounter (principal); M23.51 Chronic instability of knee, right knee; R26.2 Difficulty in walking, not elsewhere classified; M17.11 Unilateral primary osteoarthritis, right knee; M67.51 Plica syndrome, right knee; X58.XXXA Exposure to other specified factors, initial encounter; Y93.9 Activity, unspecified; Y92.9 Unspecified place or not applicable; Y99.9 Unspecified external cause status; E78.5 Hyperlipidemia, unspecified; Z79.899 Other long term (current) drug therapy
CPT/HCPCS: 29881; J0131; J0171; J0690; J0696; J1100; J1885; J2003; J2405; J2704; J2795; J3010

== ENCOUNTER → 2024-11-16 05:48 | Outpatient (BNV) | payer MEDICARE, SELFPAY | PROVIDERS: PCP Internal Medicine; Visit Provider Orthopaedic Surgery | DX: S83.241A Other tear of medial meniscus, current injury, right knee, initial encounter (principal) | CPT/HCPCS: 29881 ==

== ENCOUNTER 2024-11-29 09:37 | Outpatient (AMB) | payer MEDICARE, SELFPAY ==
--- NOTE | 2024-11-29 09:41 | MHC.OFFVIS ---
Vital Signs 11/29/24 09:42 Height 5 ft 7 in Weight 161 lb BMI 25.2 Intake Visit Reasons: PO-Rt Knee 11/16/24 Intake Note: Mo is a 64 year old male who presents today for his first post operative appointment about 2 weeks s/p Right Knee Arthroscopy w/ Dr. Blanco on 11/16/2024. Patient reports that he is doing well, he has some mild swelling at the medial aspect of the right knee. Has very mild pain with certain movements. He took one tablet of Oxycodone post operatively but has discontinued due to absense of pain. Allergies No Known Allergies [No Known Allergies*] Allergy (Verified 11/29/24 09:42) HPI HPI PO-Rt Knee 11/16/24 DR: Details: 64 yo male returns to the office today s/p Rt knee with Dr Leal 11/16/24. He has some stiffness. PFSH Medical History Hyperlipidemia Surgical History Hx of bilateral cataract extraction H/O colonoscopy Social History (Updated 11/14/24 @ 10:16 by Flaquita Hunter RN) Are you a primary memory care director to a significant other at home: No Do you presently have visiting nurse or other home services: No Alcohol intake: current Alcohol intake frequency: a few times a week Patient Tobacco Use Status: Never used Tobacco Physical Exam Vital Signs: BMI result Body Mass Index 25.2 Const General: cooperative and no acute distress Orientation/consciousness: patient oriented x3 Resp Effort & Inspection: normal respiratory effort and able to speak in complete sentences Cardio Peripheral pulses: Peripheral pulses 2+ throughout Neuro General: patient oriented x3 Extrem Other: Right knee incision clean , dry and intact. Full ROM. No joint effusion, calf supple non tender. Results Reviewed Results Reviewed: Brief Operative Note Date of Service: 11/16/24 Pre-op diagnosis: Right knee medial meniscus tear, right knee degenerative joint disease Post-op diagnosis: same Procedure: Right knee diagnostic arthroscopy with right knee arthroscopic partial medial meniscectomy, right knee arthroscopic chondroplasty of the undersurface of the patella Implants: none Surgeon: Jordan Blanco MD Assessment & Plan Assessment & Plan (1) Tear of medial meniscus of right knee: Code(s): S83.241A - Other tear of medial meniscus, current injury, right knee, initial encounter Category: Medical Plan: sutures removed today Steri-Strips applied. An order was placed for physical therapy to work on range of motion and quad strengthening exercises. He will continue to increase activities as tolerated and he will see us back in [address] Blanco, sooner if needed. Orders: Orders PT Evaluation and Treatment Today S83.241A - Other tear of medial meniscus, current injury, right knee, initial encounter Coding Level of Care Code Global (95518) Diagnoses Tear of medial meniscus of right knee S83.241A
[2024-11-29 09:42] VITALS: BMI 25.2
== END 2024-11-29 09:58 | disposition home or self-care (01) ==
LOC: HO.HOS 09:38
PROVIDERS: PCP Internal Medicine; Visit Provider Physician Assistant
DX: S83.241A Other tear of medial meniscus, current injury, right knee, initial encounter (principal)
CPT/HCPCS: 99024

== ENCOUNTER → 2024-11-29 09:37 | Outpatient (BNVA) | payer MEDICARE, SELFPAY | PROVIDERS: PCP Internal Medicine; Visit Provider Physician Assistant | DX: S83.241D Other tear of medial meniscus, current injury, right knee, subsequent encounter (principal); X58.XXXD Exposure to other specified factors, subsequent encounter; Z98.890 Other specified postprocedural states | CPT/HCPCS: 99212 ==

== ENCOUNTER 2024-12-27 09:36 | Outpatient (AMB) | payer MEDICARE, SELFPAY ==
--- NOTE | 2024-12-27 09:42 | MHC.OFFVIS ---
Vital Signs 12/27/24 09:45 Height 5 ft 7 in Weight 161 lb BMI 25.2 Intake Visit Reasons: PO Rt Knee 11/16/24 DR Intake Note: Mo is a 64 year old male who presents today post-operatively after undergoing a right knee arthroscopy on 11/16/2024. At his first post operative visit on 11/29/24, the patient was referred to formal PT. Patient reports PT has been helpful; He will be finishing PT next week. He reports a mild ?ache? in his right knee. He states that his discomfort has improved when compared to preop. Allergies No Known Allergies [No Known Allergies*] Allergy (Verified 12/27/24 09:45) Medication List - Last Reconciled 12/27/24 by Jordan Blanco MD latanoprost 0.005% 1 drp ophthalmic (eye) BEDTIME simvastatin 20 mg PO BEDTIME PFSH Medical History (Updated 12/27/24 @ 10:06 by Jordan Blanco MD) Hyperlipidemia Surgical History Hx of bilateral cataract extraction H/O colonoscopy Social History (Updated 11/14/24 @ 10:16 by Flaquita Hunter RN) Are you a primary acute care nurse practitioner to a significant other at home: No Do you presently have visiting nurse or other home services: No Alcohol intake: current Alcohol intake frequency: a few times a week Patient Tobacco Use Status: Never used Tobacco Physical Exam Vital Signs: BMI result Body Mass Index 25.2 Extrem Other: Right knee examination shows minimal crepitus with range of motion, minimal discomfort with range of motion Assessment & Plan Assessment & Plan (1) Right knee pain: Code(s): M25.561 - Pain in right knee Category: Medical Plan Mr. Bush continues to do well after undergoing right knee arthroscopic surgery on 11/16/2024. He will continue formal physical therapy for now. He will gradually transition to a home exercise program. He will follow up with me on an as-needed basis should his symptoms not plateau at an unacceptable level over the next few months. Feel free to call me at any time should questions regarding his orthopedic management arise. Coding Level of Care Code Global (52658) Diagnoses Right knee pain M25.561
[2024-12-27 09:45] VITALS: BMI 25.2
== END 2024-12-27 10:01 | disposition home or self-care (01) ==
LOC: HO.HOS 09:36
PROVIDERS: PCP Internal Medicine; Visit Provider Orthopaedic Surgery
DX: M25.561 Pain in right knee (principal)
CPT/HCPCS: 99024

== ENCOUNTER → 2024-12-27 09:36 | Outpatient (BNVA) | payer MEDICARE, SELFPAY | PROVIDERS: PCP Internal Medicine; Visit Provider Orthopaedic Surgery | DX: M25.561 Pain in right knee (principal); Z09 Encounter for follow-up examination after completed treatment for conditions other than malignant neoplasm; Z87.39 Personal history of other diseases of the musculoskeletal system and connective tissue; Z98.890 Other specified postprocedural states | CPT/HCPCS: 99212 ==

== ENCOUNTER 2025-01-25 07:00 | Outpatient (RCR) | payer MEDICARE, SELFPAY ==
--- NOTE | 2024-12-07 07:57 | MHC.PT.EP ---
[facility] [place] Office [place] Office [place] Office [address] Melisa Sibley [address] [phone] F: [phone] F: [phone] F: [phone] F: [phone] Physical Therapy Plan of Care Date of Evaluation: 12/07/24 Date of Surgery: 11/16/24 Diagnosis: other tear of medial meniscus, current injury, R knee initial encounter R knee 11/16/24 (partial meniscectomy) Assessment: 64 y/o male s/p R medial meniscectomy and chrondroplasty on 11/16/24. Reports pain and difficulty with prolonged sitting, walking, stairs, hiking, climbing ladders, and sleeping. Examination shows decreased knee ROM (0-10-95), decreased quad and hip strength, impaired gait pattern, swelling, impaired patella mobility, decreased hip flexor/ HS/ gastroc length and pain. Recommend PT 2x/week for 5 weeks to address impairments, implement HEP, and optimize functional mobility. Frequency and Duration: The patient will be seen 2x/week for 5 weeks Short Term Goals: 3 weeks I with HEP Improve R knee ROM to 0 extension Improve R knee ROM to 120 flexion Fci Goals: 5 weeks I with HEP and self management of sx Pt will be able to ambulate > 25 minutes with pain < 3/10 LEFS >45/80 Pt will ascend/ descend stairs in step through pattern Treatment Plan: Modalities to reduce pain, spasms and effusion. Manual therapy to restore motion and function. Therapeutic exercise to improve strength and flexibility. Neuromuscular re-education for posture and balance. Therapeutic activities to return to functional activities of daily living. Electronically signed by: Samira Rangel PT Please sign and return to therapist. Thank you for your referral.
--- NOTE | 2025-01-25 08:42 | MHC.PT.DC ---
[facility] [place] Office [place] Office [place] Office [address] Melisa Sibley [address] [phone] F: [phone] F: [phone] F: [phone] F: [phone] Physical Therapy Discharge Report Diagnosis: other tear of medial meniscus, current injury, R knee initial encounter R knee 11/16/24 (partial meniscectomy) Date of Surgery: 11/16/24 Date of Evaluation: 12/07/24 Date of Discharge: 01/25/25 Treatments to Date: 12 Cancellations to Date: 0 No Shows to Date: 0 Discharge Status: Achieved Goals Improved Function Independent with HEP Discharge Summary: Overall he has made excellent progress and met all goals. He ascend/descends stairs in step through pattern and able to climb ladders wtihout limitations. He has returned to work sites as well. LEFS 64/80 as he is not running. At this time, reviewed HEP and he is appropriate for d/c. Electronically signed by: Samira Rangel PT Please sign and return to therapist. Thank you for your referral.
== END 2025-01-25 08:44 | disposition home or self-care (01) ==
LOC: HO.PT 07:00
PROVIDERS: PCP Internal Medicine; Visit Provider Physician Assistant
DX: S83.241D Other tear of medial meniscus, current injury, right knee, subsequent encounter (principal)
CPT/HCPCS: 97014; 97110; 97112; 97161; 97530

== ENCOUNTER 2025-07-12 11:22 | Outpatient (AMB) | payer MEDICARE, SELFPAY ==
--- NOTE | 2025-07-12 10:24 | A.OFFPC_ITS ---
Vital Signs 07/12/25 11:28 Height 5 ft 8 in Weight 168 lb 6 oz BMI 25.6 BP 114/68 Blood Pressure Location Lt brachial Position Sitting Respiration 16 Pulse 70 Pulse Source Pulse Oximeter Temp 98.1 F Temp Source Oral Pulse Oximetry (%) 99 Oxygen Delivery Method Room Air Intake Visit Reasons: BRANDON, wellness visit for medicare/[employer] pt Mine Deputy Required: No Accompanied by: Self / Same As Patient Allergies No Known Allergies (No Known Allergies*) Allergy (Verified 07/12/25 10:24) Tobacco use date assessed: 07/12/25 Fall risk assessment: No Falls in past year Last assessed Fall Risk: 07/12/25 Dental Screening Dental Screen Date: 07/12/25 Did you have a dental visit in the last 12 months?: Yes Did you have a dental problem in the last 6 months where you did not have access to dental care?: No Was dental information given to patient?: Patient has dentist HPI HPI Comments History of Present Illness Details The patient is a 64-year-old male presenting with tremor in the right hand and discomfort in the right groin area. The tremor has been noticeable over the last few months, characterized as a coarse tremor that becomes apparent during activity and subsides when the hand is at rest. This has been identified as an essential tremor, which typically does not occur in a resting state. The patient reports that the tremor is more pronounced after physical exertion such as yard work. The discomfort in the right groin area has been occurring for several months, with onset noted after a knee surgery. It manifests during certain activities like lifting heavy objects or bending down, described primarily as discomfort rather than pain. The discomfort is noted to be different from the left side, although it does not significantly impede movement or activities. Medical History: - Hyperlipidemia - Essential Tremor - Seasonal Allergies - Glaucoma Surgical History: - Knee Surgery - Mastectomy - Oral Surgery (Jackson Teeth Extraction) - Cataract Surgery (Both eyes) Medications: - Simvastatin 20 mg daily for hyperlipid emia - Latanoprost for glaucoma Family History: - Father from lung cancer, was a heavy smoker. - Father's side: history of heart diseas e (father, two uncles, grandfather). - No family history of diabetes. Social History: - Alcohol use: Consumes one beer nightly , occasionally two on weekends. - Smoked once during childhood, no regul ar smoking. - No use of illicit drugs. [facility] Medical History (Updated 07/12/25 @ 11:54 by Pasha Garcia MD) Discomfort of right groin Tremor of right hand Hyperlipidemia Surgical History Hx of bilateral cataract extraction H/O colonoscopy Social History (Updated 11/14/24 @ 10:16 by Flaquita Hunter, LIDA) Housing: House Are you a primary career technology teacher to a significant other at home: No Do you presently have visiting nurse or other home services: No Alcohol intake: current Alcohol intake frequency: a few times a week Patient Tobacco Use Status: Never used Tobacco e-Cigarette/Vaping Use: Never Used service: No Current occupational status: employed 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 1. Little interest or pleasure in doing things: not at all 2. Feeling down, depressed, or hopeless: not at all 3. Trouble falling or staying asleep, or sleeping too much: not at all 4. Feeling tired or having little energy: not at all 5. Poor appetite or overeating: not at all 6. Feeling bad about yourself - or that you are a failure or have let yourself or your family down: not at all 7. Trouble concentrating on things, such as reading the newspaper or watching television: not at all 8. Moving or speaking so slowly that other people could have noticed. Or the opposite - being so fidgety or restless that you have been moving around a lot more than usual: not at all 9. Thoughts that you would be better off or of hurting yourself in some way: not at all Total score: 0 Depression Screening Interpretation: Negative Depression Screening Done: Yes 08154 - PHQ-9 Billing: Yes Source: Developed by Drs. Mo Marvin, Jackie Epstein, Yousuf Bobo and colleagues, with an educational irving from [employer]. Thrive Questionnaire Date Thrive assessed: 07/12/25 I am a: Patient What is your living situation today?: I have a steady place to live Within the past 12 months, did the food you bought not last and you didn't have the money to get more?: Never true Within the past 12 months, did you worry whether your food would run out before you got money to buy more?: Never true Do you have trouble paying for medicines?: No Do you have trouble getting transportation to medical appointments?: No Do you have trouble paying your heating and electricity bill?: No Do you have trouble taking care of your child, family member or friend?: No Do you have trouble with day-to-day activities such as bathing, preparing meals, shopping, managing finances, etc.?: No Are you currently unemployed and looking for a job?: No Are you interested in more education?: No THRIVE Score: 0 AUDIT C Alcohol Use Questionnaire (AUDIT-C) 1. How often do you have a drink containing alcohol?: 4 or more times a week 2. How many drinks containing alcohol do you have on a typical day when you are drinking?: 1 or 2 3. How often do you have six or more drinks on one occasion?: Never Total Score: 4 Score Reviewed/Action Taken: Yes SHAQ-7 AMB Questionnaire SHAQ-7 Date SHAQ - 7 assessed: 07/12/25 Feeling nervous, anxious, or on edge: 0 = Not at all Not being able to stop or control worryin = Not at all Worrying too much about different things: 0 = Not at all Trouble relaxin = Not at all Being so restless that it is hard to sit still: 0 = Not at all Becoming easily annoyed or irritable: 0 = Not at all Feeling afraid as if something awful might happen: 0 = Not at all Total SHAQ-7 score (0-4 normal; 5-9 mild; 10-14 moderate; 15-21 severe): 0 Source: Developed by Drs. Mo Marvin, Jackie Epstein, Yousuf Bobo and colleagues, with an educational irving from [employer]. SHAQ-7 Assessment Billing SHAQ-7 Assessment Tool: SHAQ-7 Assessment 99418 Review of Systems Narrative - Neurological: Reports tremor in the right hand. - Musculoskeletal: Reports discomfort in the right groin. - Respiratory: Denies chest pain, shortness of breath. - Cardiovascular: Denies any heart-related symptoms. - Head, eyes, ears, nose, throat (HEENT): Denies vision changes, has glaucoma. - Gastrointestinal: Denies changes in bowel movements. - Genitourinary: Denies changes in urinary habits. All systems reviewed & are unremarkable except as reviewed in HPI and above Physical exam (Primary Care) Vital Signs: Last Vital Signs Temp 98.1 F 07/12/25 11:28 Pulse 70 07/12/25 11:28 Resp 16 07/12/25 11:28 BP 114/68 07/12/25 11:28 Pulse Ox 99 07/12/25 11:28 Oxygen Delivery Method Room Air 07/12/25 11:28 BMI result Body Mass Index 25.6 Tobacco/Smoking Status: Tobacco use Status Tobacco use date assessed 07/12/25 07/12/25 10:25 Patient Tobacco Use Status Never used Tobacco 07/12/25 10: e-Cigarette/Vaping Use Never Used 07/12/25 11:33 Depression Screening Interpretation: Negative Narrative General: Alert and oriented, Well nourished, No acute distress. Eye: Pupils are equal, round and reactive to light, Intact accommodation, Extraocular movements are intact, Normal conjunctiva, Vision unchanged, History of cataract surgery in both eyes, Glaucoma present. HENT: Normocephalic, Atraumatic, Tympanic membranes are clear, Normal hearing, Oral mucosa is moist, No pharyngeal erythema, Ear canals patent. Respiratory: Lungs CTA bilaterally, No wheeze, Respirations are non-labored. Cardiovascular: Regular rate, Regular rhythm, S1 auscultated, S2 auscultated, No murmur, Good pulses equal in all extremities, Normal peripheral perfusion, No edema. Gastrointestinal: Soft, Non-tender, Non-distended, Normal bowel sounds, No o rganomegaly. Musculoskeletal: Normal range of motion, Normal strength, No tenderness, No swelling, No deformity, Normal gait, History of knee surgery, Right groin discomfort noted. Integumentary: Warm, Dry, [place], Intact. Neurologic: Alert, Oriented, Normal sensory, Normal motor function, No focal defects, Cranial Nerves II-XII are grossly intact, Normal deep tendon reflexes, Essential tremor in right hand noted. Psychiatric: Cooperative, Appropriate mood & affect, Normal judgment. Coding Level of Care Code New Pt Level 4 (30453) Diagnoses Tremor of right hand R25.1 Discomfort of right groin R10.31 Other hyperlipidemia E78.49 Hyperlipidemia type: other hyperlipidemia Additional Codes PHQ-9 - 17199 - PHQ-9 Billing: Yes ([id number]) SHAQ-7 Assessment Billing - SHAQ-7 Assessment Tool: SHAQ-7 Assessment 63296 ([id number]) Assessment & Plan Assessment & Plan (1) Tremor of right hand: Comment: - Plan to prescribe propranolol to manage tremor activity if it becomes bothersome. - Monitor tremor progression and response to medication. Code(s): R25.1 - Tremor, unspecified Category: Medical (2) Discomfort of right groin: Comment: - No immediate intervention needed, advised continued activity and muscle strengthening. - Monitor discomfort and consider further evaluation if symptoms worsen. Code(s): R10.31 - Right lower quadrant pain Category: Medical (3) Hyperlipidemia: Comment: - Plan to reassess cholesterol levels with blood work. - Potential adjustment of Simvastatin dosage depending on lab results. Code(s): E78.5 - Hyperlipidemia, unspecified Category: Medical Qualifiers: Hyperlipidemia type: other hyperlipidemia Qualified Code(s): E78.49 - Other hyperlipidemia Plan: Health Maintenance: - Continued colonoscopy screenings through Dr. Gilbert. - Blood work including lipids and other screenings to reassess overall health baseline. - Lifestyle discussion on reducing alcohol intake to address cardiovascular risk. Patient was informed and verbally consented to the use of an ambient scribe for clinic note documentation during this visit. Plan During the patient visit, we discussed the likely diagnosis of essential tremor due to activity and its potential management with medication if symptoms become difficult to manage. For the groin discomfort, suggest continued physical activity and muscle strengthening, with further examination if discomfort persists or worsens. In light of the patient's strong family history of heart disease, we thoroughly discussed cardiovascular risk management, particularly addressing hyperlipidemia. I recommended that we increase vigilance with cholesterol management, potentially adjusting medication pending next lab results. Follow-up will include scheduled blood tests to reassess the situation and modifying hyperlipidemia treatment accordingly. Colonoscopy schedule adherence remains a priority for cancer screening. Orders: Orders Comprehensive Met. Panel Today Z76.89 - Persons encountering health services in other specified circumstances Hemoglobin A1c Today Z76.89 - Persons encountering health services in other specified circumstances Lipid Panel Today Z76.89 - Persons encountering health services in other sp ecified circumstances TSH reflex Free T4 Today Z76.89 - Persons encountering health services in other specified circumstances Complete Blood Count Auto Diff Today Z76.89 - Persons encountering health services in other specified circumstances HIV Ab/Ag Today Z76.89 - Persons encountering health services in other specif ied circumstances Syphilis Screen Today Z76.89 - Persons encountering health services in other specified circumstances Vitamin D 25-OH Total Today Z76.89 - Persons encountering health services in other specified circumstances Patient Instructions: - Continue engaging in regular physical activity and stretching exercises. - Monitor the tremor; consider coming back if symptoms worsen. - Reduce alcohol intake to manage cardiovascular risk. - Proceed with scheduled colonoscopy at year's end. - Have blood drawn for scheduled tests as soon as possible. - Follow up in six months unless contacted for earlier discussion based on test results.
[2025-07-12 11:28] VITALS: BP 114/68; PULSE 70; RESP 16; TEMP 36.7; O2SAT 99; BMI 25.6
--- OUTSIDE RECORDS SUMMARY | 2025-07-12 13:47 | XMS_ITS | Patient Health Record ---
Author Organization [facility] Address [address] [place] [address] Care Team Providers Care Jacquard Fixer Name Role Phone Parisa (RETIRED) Zeeshan VELASQUEZ Primary Care Provide Isabel Mendoza Unavailable [phone] Allergies Allergen (clinical drug ingredient) Drug/Non Drug Allergy documented on EMR Reaction Allergy Type Onset Date Status fur bearing animals (uncoded) Unknown Allergy Active seasonal allergies (uncoded) Unknown Allergy Active Reason For Referral No Information Medications Medication SIG (Take, Route, Frequency, Duration) Notes Start Date End Date Status Vitamin D 25 MCG (1000 UT) 1 tablet Oral ly Once a day Active Simvastatin 20 MG Orally Ac tive Multivitamin Active Immunizations Vaccine Route Administration Date Status Comme nts Influenza Unknown 04/15/2020 Refused Problems Problem Type SNOMED Code ICD Code Onset Dates Problem Status W/U Status Risk Notes Problem Screening for malignant neoplasm of colon (998009311) Encounter for screening for malignant neoplasm of colon (Z12.11) Active confirmed Problem History of adenomatous polyp of colon (394571799) History of adenomatous polyp of colon (Z86.010) Active confirmed Problem Preprocedural examination (047965251896266) Preprocedural examination (Z01.818) Active confirmed Plan Of Treatment Pending Test Test Name Order Date GI BIOPSY 04/25/2020 Future Test Test Name Order Date COLONOSCOPY 06/17/2015 COLONOSCOPY 04/15/2020 Next Appt Details Provider Name:Isabel Gilbert , 09/18/2025 01:20:00 PM, [address], [address], [place], [address], Insurance Providers Payer Name Payer Address Payer Phone Subscriber Number Group Number Insured Name Patient Relationship to Insured Coverage Start Date Coverage End Date MEDICARE OF [place] [address] [place] [id number] ISABEL WOODWARD Self - patient is the insured [employer] CLAIMS [address] [place] [address] [phone] [id number] ISABEL WOODWARD Self - patient is the insured Medical (General) History Medical History History ICD Code Screening colonoscopy 622-2 010-small tubular adenomas removed--he was also noted to have some very mild sigmoid diverticulosis, and internal and external hemorrhoids; F/U colonoscopy in 06/2015 with removal of a tubular adenoma Hyperlipidemia Denies MA,DM,CVA,Lung disease,renal dise ase Right bundle branch block noted incident ally Surgical History Surgery Date(Month/Year) knee surgery vasectomy 1995 cataract/glaucoma
== END 2025-07-12 11:48 | disposition home or self-care (01) ==
LOC: HO.HMCHD 11:23
PROVIDERS: PCP Internal Medicine; Visit Provider Student in an Organized Health Care Education/Training Program
DX: R25.1 Tremor, unspecified (principal); R10.31 Right lower quadrant pain; E78.49 Other hyperlipidemia

== ENCOUNTER 2025-07-12 12:05 | Outpatient (REF) | payer MEDICARE, SELFPAY ==
[2025-07-12 13:28] LABS: MANUAL DIFF FLAG NO
[2025-07-12 13:37] LABS: Hematocrit 42.4 % (42.0-52.0); Hemoglobin 14.4 g/dl (14.0-18.0); Imm Gran Abs Auto 0.01 X10*3/uL (0.00-0.03); Imm Gran Pct Auto 0.2 % (0.0-0.4); Lymphocytes Absolute Auto 1.6 X10*3/uL (1.2-4.9); Mean Corpuscular HGB Conc 34.0 g/dl (31.0-36.0); Mean Corpuscular Hemoglobin 32.2 pg (27.0-33.0); Mean Corpuscular Volume 94.9 fL (80.0-98.0); NRBC Abs Auto 0.000 X10*3/uL (0.0-0.012); NRBC Pct Auto 0.0 /100WBC (0.0-0.2); Platelet Count 290 X10*3/uL (160-400); Red Blood Count 4.47 X10*6/uL (4.60-5.80); White Blood Count 5.7 X10*3/uL (4.8-10.8)
[2025-07-12 14:14] LABS: Alanine Aminotransferase 24 U/L (0-40); Albumin Level 4.7 g/dL (3.5-5.0); Alkaline Phosphatase 87 U/L (39-117); Anion Gap 12 (12-20); Aspartate Amino Transferase 31 U/L (5-37); Blood Urea Nitrogen 15 mg/dL (9-16); Calcium 9.4 mg/dL (8.4-10.2); Carbon Dioxide 26 mmol/L (22-29); Chloride 107 mmol/L (96-108); Cholesterol 209 mg/dL (<200); Estimated Glomerular Filt Rate > 60; HDL Cholesterol 53 mg/dL (>40); Potassium 4.4 mmol/L (3.3-5.1); Sodium 141 mmol/L (135-145); Total Protein 7.3 g/dL (6.5-8.0); Triglycerides 135 mg/dL (<150)
[2025-07-13 03:33] LABS: Syphilis Screen Nonreactive (Nonreactive)
[2025-07-13 03:57] LABS: HIV Num 1 0.05 S/CO (0.00-0.99)
== END 2025-07-12 12:06 | disposition home or self-care (01) ==
LOC: HO.10HDL 12:05
PROVIDERS: Visit Provider Student in an Organized Health Care Education/Training Program
DX: Z76.89 Persons encountering health services in other specified circumstances (principal); Z13.6 Encounter for screening for cardiovascular disorders; Z13.21 Encounter for screening for nutritional disorder; Z13.29 Encounter for screening for other suspected endocrine disorder; Z13.1 Encounter for screening for diabetes mellitus; Z11.4 Encounter for screening for human immunodeficiency virus [HIV]
CPT/HCPCS: 36415; 80053; 80061; 82306; 83036; 84443; 85025; 86780; 87389; 96127; 99202